=== PATIENT | female | born 1950 | race American Indian/Alaskan Native ===

== ENCOUNTER → 2017-10-17 | Outpatient (CLI) | payer MEDICARE, OTHER ==
[~2017-10-17] MED LIST: ALBU90OI6 INH; ALBU90OI61; ALBU90OI61 INH; AMOX500; ASPI81CH; ASPI81CH PO; ASPI81EC PO; Accuneb1.25 MG/3 INH; Amaryl1 MG; BENZ100A; BISA5EC; BUME1 PO; CALCA500CH; CEPH500 PO; CHOL10002 PO; CICL.77TC; CYAN100; DIPH25 PO; DULERA 200 MCG/13 GM INH; Duoneb 2.5-0.5 M3 ML INH; ERGO400; ERGO50000; FAMO20 PO; FLUSAL2505; FLUSAL2505 IH; FLUT44OIA; FLUT44OIA IH; FOLBIC RF TABL1 EACH; FURO40; FURO40 PO; Flonase 0.05% N16 GM; GLIM2 PO; HYDCHL25; HYDCHL50 PO; HYDMOR2; HYDMOR2 PO; Humalog100 UNIT/3 SC; JARDIANCE25 MG PO; K-TAB ER20 MEQ PO; LIRA0.6P; LISI5 PO; LORA2; LORA2 PO; METO100ER; METO100ER PO; METO2.5; METO5 PO; METR500; MIRT15 PO; MIRT30; MIRT30 PO; MOMENI; MONT10T PO; Methimazole5 MG PO; Metoprolol Tar100 MG PO; NYST100P; NYST100P TOP; Nyamyc15 GM TOP; Nystatin15 GM TOP; OXYACE5T PO; PANT40 PO; POTCHL20ER PO; PRED20 PO; PROM25 PO; PSYL5.85P; PSYL5.85P PO; RABE20; RABE20 PO; SERT50; SITA100T2 PO; TIOT18 INH; TRESIBA FL100 UNIT/1 SC; TRULICITY1.5 MG/0.5 SC; VENL75ER; VENL75ER PO; Zithromax250 MG PO
[2017-10-17 14:07] LABS: Source, Urine Clean Catch
[2017-10-17 14:35] LABS: Appearance, Urine Clear (Clear); Bilirubin, Urine Neg (Neg); Blood, Urine Neg (Neg); Color, Urine Yellow (P-Yellow); Glucose Qualitative, Urine 3+ (Normal); Ketones, Urine Neg (Neg); Leukocyte Esterase, Urine Neg (Neg); Nitrite, Urine Neg (Neg); Protein, Urine Neg (Neg); Urobilinogen, Urine NORM (Normal)
== END ==
LOC: LAB EV 13:48
PROVIDERS: Family Medicine
DX: R82.90 Unspecified abnormal findings in urine (principal)
CPT/HCPCS: 81003

== ENCOUNTER 2019-01-13 07:48 | Day surgery (SDC) | payer MEDICARE, OTHER ==
[~2019-01-13 07:48] MED LIST changes: +ALBU2.5V5 NEB; +DICL75ER PO; +Dulcolax5 MG PO; +Humalog100 UNIT/1 SC; +LO-DOSE ASPIRIN81 MG PO; +METO100 PO; +Nystop60 GM; +Perforomis20 MCG/2 M INH; +TUMS500 MG PO; +VENL150ER PO; +VITAMIN D32000 UNIT PO
== END 2019-01-13 09:40 | disposition home or self-care (01) ==
LOC: ORSCSDS 07:48
PROVIDERS: Internal Medicine Gastroenterology
PROC: 0DJ08ZZ Inspection of Upper Intestinal Tract, Via Natural or Artificial Opening Endoscopic (ICD-10-PCS; principal; 2019-01-13 09:00)
DX: K76.0 Fatty (change of) liver, not elsewhere classified (principal); K74.60 Unspecified cirrhosis of liver; E11.9 Type 2 diabetes mellitus without complications; I10 Essential (primary) hypertension; G47.30 Sleep apnea, unspecified; K75.81 Nonalcoholic steatohepatitis (NASH); E66.01 Morbid (severe) obesity due to excess calories; Z68.42 Body mass index [BMI] 45.0-49.9, adult; Z87.891 Personal history of nicotine dependence; Z79.82 Long term (current) use of aspirin; Z79.84 Long term (current) use of oral hypoglycemic drugs; Z79.4 Long term (current) use of insulin; Z79.899 Other long term (current) drug therapy
CPT/HCPCS: 82947; J0330; J0461; J1980; J2405; J7120

== ENCOUNTER 2019-04-13 13:27 | Emergency (ER) | payer MEDICARE, OTHER ==
[~2019-04-13] VITALS: Ht 157.5 cm; Wt 115.2 kg
[2019-04-13 14:13] LABS: BASOPHILS ABSOLUTE AUTO 0.06 K/mm3 (0.00-0.23); BASOPHILS PERCENT AUTO 1 % (0-2); EOSINOPHILS ABSOLUTE AUTO 0.09 K/mm3 (0.00-0.68); EOSINOPHILS PERCENT AUTO 1 % (0-6); Hematocrit 42.5 % (33.0-51.0); Hemoglobin 13.1 g/dL (11.5-16.0); IMMATURE GRAN ABSOLUTE AUTO 0.03 K/mm3 (0.00-0.10); IMMATURE GRAN PERCENT AUTO 0 % (0-1); LYMPHOCYTES ABSOLUTE AUTO 1.23 K/mm3 (0.84-5.20); LYMPHOCYTES PERCENT AUTO 16 % (21-46); MONOCYTES ABSOLUTE AUTO 0.74 K/mm3 (0.16-1.47); MONOCYTES PERCENT AUTO 10 % (4-13); Mean Corpuscular HGB 28.5 pg (26.0-34.0); Mean Corpuscular HGB Conc 30.8 g/dL (31.5-36.5); Mean Corpuscular Volume 92 fL (80-100); Mean Platelet Volume 11.3 fL (9.1-12.4); NEUTROPHILS PERCENT AUTO 72 % (41-73); Platelet Count 103 K/mm3 (150-400); RDW Standard Deviation 51.4 fL (35.1-46.3); White Blood Cell Count 7.65 K/mm3 (4.00-11.30)
[2019-04-13 14:48] LABS: Source, Urine Clean Catch
[2019-04-13 14:51] LABS: Bilirubin, Urine Neg (Neg); Blood, Urine 2+ (Neg); Glucose Qualitative, Urine Neg (Neg); Ketones, Urine 1+ (Neg); Leukocyte Esterase, Urine 3+ (Neg); Nitrite, Urine Neg (Neg); Protein, Urine 4+ (Neg); Specific Gravity, Urine 1.025 (1.003-1.022); Urobilinogen, Urine 1+ (Normal)
[2019-04-13 14:54] LABS: Alanine Aminotransfer (ALT/SGP 29 U/L (12-78); Albumin, Blood 2.7 g/dL (3.4-5.0); Albumin/Globulin Ratio 0.6 (0.8-1.8); Alk Phos 103 U/L (50-136); Anion Gap 5 mmol/L (6-16); Aspartate Aminotrans (AST/SGOT 41 U/L (12-37); Bilirubin, Total 0.4 mg/dL (0.1-1.0); Blood Urea Nitrogen 7 mg/dL (8-24); Bun/Creatinine Ratio 12.9 (12.0-20.0); CO2, Blood 35 mmol/L (21-32); Calcium, Blood 8.8 mg/dL (8.5-10.1); Chloride, Blood 100 mmol/L (98-108); Creatinine, Blood 0.54 mg/dL (0.40-1.00); Globulin, Blood 4.6 g/dL (2.2-4.0); Glomerular Filtration Rate >60 (60-); Glucose, Blood 170 mg/dL (70-99); Potassium, Blood 3.4 mmol/L (3.5-5.5); Sodium, Blood 140 mmol/L (136-145); Total Protein, Blood 7.3 g/dL (6.4-8.2)
[2019-04-13 15:05] LABS: Appearance, Urine Cloudy (Clear); Color, Urine Yellow (P-Yellow)
[2019-04-13 15:07] LABS: White Blood Cells, Urine 50-100 /hpf (0-5)
[2019-04-13 15:09] LABS: Bacteria Many /hpf; Squamous Epithelial Cells Many /hpf (Few)
[2019-04-13] MEDS ORDERED: CEPH500 PO (15:23)
== END 2019-04-13 16:30 | disposition home or self-care (01) ==
LOC: ER 13:27
PROVIDERS: Emergency Medicine
DX: N12 Tubulo-interstitial nephritis, not specified as acute or chronic (principal); E87.5 Hyperkalemia; Z88.8 Allergy status to other drugs, medicaments and biological substances; Z88.2 Allergy status to sulfonamides; Z88.7 Allergy status to serum and vaccine; Z88.5 Allergy status to narcotic agent; Z79.899 Other long term (current) drug therapy; Z79.82 Long term (current) use of aspirin; Z79.4 Long term (current) use of insulin; F32.9 Major depressive disorder, single episode, unspecified; F41.9 Anxiety disorder, unspecified; E11.9 Type 2 diabetes mellitus without complications; E78.5 Hyperlipidemia, unspecified; Z87.891 Personal history of nicotine dependence
CPT/HCPCS: 51701; 80053; 81001; 85025; 87077; 87086; 87186; 93005; 93010; 96365; 99284-25; J0696

== ENCOUNTER 2020-03-31 07:32 | Day surgery (SDC) | payer MEDICARE, OTHER | END 2020-03-31 22:35 | disposition home or self-care (01) | LOC: MOI US 07:32 → MOI MAM 08:00 → MOI US 08:00 | DX: C50.912 Malignant neoplasm of unspecified site of left female breast (principal); C50.911 Malignant neoplasm of unspecified site of right female breast; R92.8 Other abnormal and inconclusive findings on diagnostic imaging of breast; Z17.0 Estrogen receptor positive status [ER+] | CPT/HCPCS: 19083; 19084; 77066; 88305; 88342; 88360; A4648; G0279 ==

== ENCOUNTER 2020-09-06 14:04 | Day surgery (SDC) | payer MEDICARE, OTHER ==
[2020-09-05 08:07] LABS: BASOPHILS ABSOLUTE AUTO 0.07 K/mm3 (0.00-0.23); BASOPHILS PERCENT AUTO 1 % (0-2); EOSINOPHILS PERCENT AUTO 2 % (0-6); Hematocrit 25.9 % (33.0-51.0); Hemoglobin 7.3 g/dL (11.5-16.0); IMMATURE GRAN ABSOLUTE AUTO 0.03 K/mm3 (0.00-0.10); IMMATURE GRAN PERCENT AUTO 1 % (0-1); LYMPHOCYTES ABSOLUTE AUTO 1.57 K/mm3 (0.84-5.20); LYMPHOCYTES PERCENT AUTO 28 % (21-46); MONOCYTES ABSOLUTE AUTO 0.69 K/mm3 (0.16-1.47); MONOCYTES PERCENT AUTO 12 % (4-13); Mean Corpuscular HGB 24.3 pg (26.0-34.0); Mean Corpuscular HGB Conc 28.2 g/dL (31.5-36.5); Mean Corpuscular Volume 86 fL (80-100); Mean Platelet Volume 9.9 fL (9.1-12.4); NEUTROPHILS ABSOLUTE AUTO 3.23 K/mm3 (1.96-9.15); NEUTROPHILS PERCENT AUTO 57 % (41-73); Platelet Count 421 K/mm3 (150-400); RDW Coefficient Variation 17.4 % (11.7-14.2); RDW Standard Deviation 54.4 fL (35.1-46.3); White Blood Cell Count 5.69 K/mm3 (4.00-11.30)
[2020-09-05 08:20] LABS: Alanine Aminotransfer (ALT/SGP 15 U/L (12-78); Albumin/Globulin Ratio 0.5 (0.8-1.8); Alk Phos 116 U/L (50-136); Anion Gap 1 mmol/L (6-16); Aspartate Aminotrans (AST/SGOT 34 U/L (12-37); Bilirubin, Total 0.6 mg/dL (0.1-1.0); Blood Urea Nitrogen 7 mg/dL (8-24); Bun/Creatinine Ratio 12.1 (12.0-20.0); CO2, Blood 29 mmol/L (21-32); Calcium, Blood 8.6 mg/dL (8.5-10.1); Chloride, Blood 108 mmol/L (98-108); Creatinine, Blood 0.58 mg/dL (0.40-1.00); Globulin, Blood 4.3 g/dL (2.2-4.0); Glomerular Filtration Rate >60 (60-); Glucose, Blood 110 mg/dL (70-99); Potassium, Blood 4.1 mmol/L (3.5-5.5); Sodium, Blood 138 mmol/L (136-145); Total Protein, Blood 6.3 g/dL (6.4-8.2)
[2020-09-06 08:55] LABS: Percent Saturation 7.8 % (15.0-50.0)
[~2020-09-06 14:04] MED LIST changes: -Humalog100 UNIT/1 SC; -LO-DOSE ASPIRIN81 MG PO
--- NOTE | 2020-09-06 15:00 | NUR ---
PT WITH INSPIRATORY WHEEZE TO RIGHT MID LOBE, OTHER LOBES DIMINISHED BUT CLEAR. O2 AT 3 L/MIN CONTINUOUSLY. PT STATES HX OF COPD.
[2020-09-06] MEDS ORDERED: OXYGEN INH (15:50)
[2020-09-06] MEDS ORDERED: DEXA4 PO (15:57)
[2020-09-06] MEDS ORDERED: LEVFLO500 PO (15:58)
[2020-09-06] MEDS ORDERED: DIFLUCAN100 MG PO (15:58)
[2020-09-06] MEDS ORDERED: NITR100CA PO (15:59)
[2020-09-06] MEDS ORDERED: METO10 PO (22:20)
[2020-09-06] MEDS ORDERED: FERSU300 PO (22:21)
[2020-09-06] MEDS ORDERED: Ondansetron Odt8 MG SL (22:23)
[2020-09-06] MEDS ORDERED: TRULICITY1.5 MG/0.1 SC (22:23)
[2020-09-06] MEDS ORDERED: HUMALOG KW100 UNIT/1 SC (22:25)
[2020-09-06] MEDS ORDERED: POTCHL20ER PO (22:25)
[2020-09-06] MEDS ORDERED: TRESIBA FL100 UNIT/2 SC (22:26)
[2020-09-06] MEDS ORDERED: ASPIR 8181 M1 PO (22:27)
[2020-09-06] MEDS ORDERED: ANORO ELLIPTA1 EACH INH (22:28)
[2020-09-06] MEDS ORDERED: BISA5EC PO (22:29)
[2020-09-06] MEDS ORDERED: OLAN10 PO (22:39)
[2020-09-06] MEDS ORDERED: HYDMOR2 PO (22:50)
[2020-09-06] MEDS ORDERED: ALBU90OI61 INH (22:50)
== END 2020-09-06 16:56 | disposition home or self-care (01) ==
LOC: ATC 14:04
PROVIDERS: Internal Medicine Hematology & Oncology
DX: C50.812 Malignant neoplasm of overlapping sites of left female breast (principal); C77.9 Secondary and unspecified malignant neoplasm of lymph node, unspecified; E11.9 Type 2 diabetes mellitus without complications; I10 Essential (primary) hypertension; J44.9 Chronic obstructive pulmonary disease, unspecified; G47.00 Insomnia, unspecified; M19.90 Unspecified osteoarthritis, unspecified site; D64.9 Anemia, unspecified; Z87.891 Personal history of nicotine dependence; Z79.51 Long term (current) use of inhaled steroids; Z79.82 Long term (current) use of aspirin; Z79.4 Long term (current) use of insulin; Z79.899 Other long term (current) drug therapy; Z88.1 Allergy status to other antibiotic agents; Z88.2 Allergy status to sulfonamides; Z88.5 Allergy status to narcotic agent; Z88.6 Allergy status to analgesic agent; Z88.7 Allergy status to serum and vaccine; Z88.8 Allergy status to other drugs, medicaments and biological substances; Z99.81 Dependence on supplemental oxygen
CPT/HCPCS: 36415; 36430; 80053; 82728; 83540; 83550; 85025; 86850; 86900; 86901; 86923; J2704; J7050; P9016

== ENCOUNTER 2020-09-06 19:48 | Inpatient (IN) | payer MEDICARE, OTHER ==
[~2020-09-06] VITALS: Ht 157.5 cm; Wt 104.5 kg
[~2020-09-06 19:48] MED LIST changes: +DEXA4 PO; +DIFLUCAN100 MG PO; +LEVFLO500 PO; +NITR100CA PO; +OXYGEN INH
[2020-09-06 20:23] LABS: BASOPHILS ABSOLUTE AUTO 0.09 K/mm3 (0.00-0.23); BASOPHILS PERCENT AUTO 1 % (0-2); EOSINOPHILS ABSOLUTE AUTO 0.07 K/mm3 (0.00-0.68); EOSINOPHILS PERCENT AUTO 1 % (0-6); Hematocrit 25.6 % (33.0-51.0); Hemoglobin 7.4 g/dL (11.5-16.0); IMMATURE GRAN ABSOLUTE AUTO 0.06 K/mm3 (0.00-0.10); IMMATURE GRAN PERCENT AUTO 1 % (0-1); LYMPHOCYTES ABSOLUTE AUTO 2.64 K/mm3 (0.84-5.20); LYMPHOCYTES PERCENT AUTO 27 % (21-46); MONOCYTES ABSOLUTE AUTO 1.24 K/mm3 (0.16-1.47); MONOCYTES PERCENT AUTO 13 % (4-13); Mean Corpuscular HGB 24.7 pg (26.0-34.0); Mean Corpuscular HGB Conc 28.9 g/dL (31.5-36.5); Mean Corpuscular Volume 86 fL (80-100); Mean Platelet Volume 9.6 fL (9.1-12.4); NEUTROPHILS ABSOLUTE AUTO 5.54 K/mm3 (1.96-9.15); NEUTROPHILS PERCENT AUTO 58 % (41-73); NRBC ABSOLUTE 0.04 K/mm3 (0.00-0.02); NRBC Auto 0.4 /100 WBC (0.0-0.2); Platelet Count 465 K/mm3 (150-400); RDW Coefficient Variation 17.1 % (11.7-14.2); Red Blood Cell Count 2.99 M/mm3 (3.80-5.20); White Blood Cell Count 9.64 K/mm3 (4.00-11.30)
[2020-09-06 20:41] LABS: Alanine Aminotransfer (ALT/SGP 14 U/L (12-78); Albumin, Blood 1.8 g/dL (3.4-5.0); Albumin/Globulin Ratio 0.5 (0.8-1.8); Alk Phos 104 U/L (50-136); Anion Gap 11 mmol/L (6-16); Aspartate Aminotrans (AST/SGOT 31 U/L (12-37); Bilirubin, Total 0.7 mg/dL (0.1-1.0); Blood Urea Nitrogen 8 mg/dL (8-24); Bun/Creatinine Ratio 12.7 (12.0-20.0); CO2, Blood 24 mmol/L (21-32); Calcium, Blood 8.1 mg/dL (8.5-10.1); Chloride, Blood 107 mmol/L (98-108); Creatinine, Blood 0.63 mg/dL (0.40-1.00); Free Thyroxine 1.55 ng/dL (0.70-1.60); Globulin, Blood 3.8 g/dL (2.2-4.0); Glomerular Filtration Rate >60 (60-); Glucose, Blood 151 mg/dL (70-99); Magnesium, Blood 1.8 mg/dL (1.6-2.4); Potassium, Blood 4.3 mmol/L (3.5-5.5); Sodium, Blood 142 mmol/L (136-145); Total Protein, Blood 5.6 g/dL (6.4-8.2); Troponin I <0.015 ng/mL (0.000-0.040)
[2020-09-06 20:44] LABS: Thyroid Stimulating Hormone <0.005 uIU/mL (0.360-4.800)
[2020-09-06] MEDS ORDERED: METO10 PO (22:20)
[2020-09-06] MEDS ORDERED: FERSU300 PO (22:21)
[2020-09-06] MEDS ORDERED: TRULICITY1.5 MG/0.1 SC (22:23)
[2020-09-06] MEDS ORDERED: Ondansetron Odt8 MG SL (22:23)
[2020-09-06] MEDS ORDERED: HUMALOG KW100 UNIT/1 SC (22:25)
[2020-09-06] MEDS ORDERED: POTCHL20ER PO (22:25)
[2020-09-06] MEDS ORDERED: TRESIBA FL100 UNIT/2 SC (22:26)
[2020-09-06] MEDS ORDERED: ASPIR 8181 M1 PO (22:27)
[2020-09-06] MEDS ORDERED: ANORO ELLIPTA1 EACH INH (22:28)
[2020-09-06] MEDS ORDERED: BISA5EC PO (22:29)
[2020-09-06] MEDS ORDERED: OLAN10 PO (22:39)
[2020-09-06] MEDS ORDERED: HYDMOR2 PO (22:50)
[2020-09-06] MEDS ORDERED: ALBU90OI61 INH (22:50)
[2020-09-07 01:25] LABS: Source, Urine Clean Catch
--- NOTE | 2020-09-07 01:30 | NUR ---
PT ARRIVED FROM ER VIA STRETCHER; SLIDER SHEET USED TO TRANSFER PT TO BED; PT A&O X 4; DENIES CHEST PAIN; VSS; O2 SATS >92 ON 2L NC, PT STATES BASELINE; SINUS TACH NOTED ON TELE; 1 UNIT PRBC STARTED W/ NS FLUSH; PROTONIX GTT STARTED; ASSISTED PT TO CALL SPOUSE FOR UPDATE; ORIENTED TO UNIT SAFETY / PROTOCOL; CALL LIGHT IN REACH; BED IN LOWEST POSITION.
[2020-09-07 01:31] LABS: Bilirubin, Urine Neg (Neg); Blood, Urine 4+ (Neg); Glucose Qualitative, Urine Neg (Neg); Ketones, Urine 1+ (Neg); Leukocyte Esterase, Urine 3+ (Neg); Nitrite, Urine Pos (Neg); Protein, Urine 3+ (Neg); Urobilinogen, Urine 1+ (Normal)
[2020-09-07 01:32] LABS: Appearance, Urine Hazy (Clear); Color, Urine Yellow (P-Yellow)
[2020-09-07 01:37] LABS: Bacteria Many /hpf; Red Blood Cells, Urine 0-2 /hpf (0-2); Squamous Epithelial Cells Rare /hpf (Few); White Blood Cells, Urine TNTC /hpf (0-5)
--- NOTE | 2020-09-07 02:54 | NUR ---
UPDATE PT C/O BACK PAIN; HEAT PAD BROUGHT TO PT; DILAUDID PO GIVEN PER EMAR; RT TO BEDSIDE TO SET UP CPAP FOR NOC; CALL LIGHT IN REACH; BED IN LOWEST POSITION.
[2020-09-07 06:17] LABS: BASOPHILS ABSOLUTE AUTO 0.05 K/mm3 (0.00-0.23); BASOPHILS PERCENT AUTO 1 % (0-2); EOSINOPHILS ABSOLUTE AUTO 0.04 K/mm3 (0.00-0.68); EOSINOPHILS PERCENT AUTO 1 % (0-6); Hematocrit 23.5 % (33.0-51.0); Hemoglobin 7.2 g/dL (11.5-16.0); IMMATURE GRAN ABSOLUTE AUTO 0.05 K/mm3 (0.00-0.10); IMMATURE GRAN PERCENT AUTO 1 % (0-1); LYMPHOCYTES ABSOLUTE AUTO 2.22 K/mm3 (0.84-5.20); LYMPHOCYTES PERCENT AUTO 28 % (21-46); MONOCYTES ABSOLUTE AUTO 1.11 K/mm3 (0.16-1.47); MONOCYTES PERCENT AUTO 14 % (4-13); Mean Corpuscular HGB Conc 30.6 g/dL (31.5-36.5); Mean Corpuscular Volume 85 fL (80-100); Mean Platelet Volume 9.5 fL (9.1-12.4); NEUTROPHILS ABSOLUTE AUTO 4.35 K/mm3 (1.96-9.15); NEUTROPHILS PERCENT AUTO 56 % (41-73); Platelet Count 331 K/mm3 (150-400); RDW Coefficient Variation 16.3 % (11.7-14.2); RDW Standard Deviation 50.3 fL (35.1-46.3); Red Blood Cell Count 2.77 M/mm3 (3.80-5.20); White Blood Cell Count 7.82 K/mm3 (4.00-11.30)
[2020-09-07 06:37] LABS: Albumin, Blood 1.6 g/dL (3.4-5.0); Anion Gap 4 mmol/L (6-16); Blood Urea Nitrogen 16 mg/dL (8-24); Bun/Creatinine Ratio 28.5 (12.0-20.0); CO2, Blood 31 mmol/L (21-32); Calcium, Blood 7.4 mg/dL (8.5-10.1); Chloride, Blood 106 mmol/L (98-108); Creatinine, Blood 0.56 mg/dL (0.40-1.00); Glomerular Filtration Rate >60 (60-); Glucose, Blood 135 mg/dL (70-99); Phosphorus, Blood 3.3 mg/dL (2.5-4.9); Potassium, Blood 4.2 mmol/L (3.5-5.5); Sodium, Blood 141 mmol/L (136-145)
--- NOTE | 2020-09-07 06:40 | NUR ---
SHIFT SUMMARY PT A&O X 4; DENIES CHEST PAIN; VSS; SINUS TACH NOTED ON TELE W/ HR 110; O2 SATS > 93 ON 2.5 L NC; 1 U PRBC COMPLETED THIS SHIFT; PROTONIX GTT INFUSING; ROCEPHIN X 1 W/ NO ADVERSE REACTION; LOOSE BLOODY / MAROON STOOL X 3 THIS SHIFT; PT EXPRESSES CONCERN FOR SPOUSE COMING TO TERMS W/ THE SEVERITY OF HER CONDITION; CALL LIGHT IN REACH; BED IN LOWEST POSITION; WILL CONTINUE TO MONITOR CLOSELY UNTIL HAND OFF TO DAY SHIFT RN.
--- NOTE | 2020-09-07 08:19 | NUR ---
Dr. Beaver here to see the patient. Code status changed after pt initiated conversation about her purple arm band. Also placed new order for palliative care consultation. Dr. Beaver said she will call Dr. Salazar this morning.
--- NOTE | 2020-09-07 09:23 | NUR ---
Spoke with Dr. Salazar on the phone. Last drink of water was 0910. NPO from now. Also spoke with Celestina in day surgery, confirmed pt is NPO. He will call when they are able to take the pt.
--- NOTE | 2020-09-07 09:24 | NUR ---
Covid test completed and sent to lab.
--- NOTE | 2020-09-07 10:09 | NUR ---
ASSUMED CARE FROM NOC RN, MORNING UPDATE. PT WAS AWAKE AND DOING A BREATHING TREATMENT WITH RT DURING REPORT. 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 PT HAS BEEN SCHEDULED FOR A UPPER SCOPE WITH DR. KAPLAN THIS MORNING, PT HAS BEEN NPO OTHER THAN SIPS OF WATER WITH MEDICATIONS THIS MORNING. PT DOES HAVE CHRONIC PAIN WHICH HAS BEEN TREATED WITH ORAL MEDICATION THIS MORNING. VS STABLE, HR 110s OTHERWISE SR. NO INSULIN COVERAGE NEEDED THIS AM. ONCOLOGY WAS CONSULTED SO THAT DR. ELLIOTT' OFFICE COULD BE IN TOUCH WITH GI AND PCP AND REMAIN INVOLVED IN THE CASE. RN DEENAO SPOKE WITH PT'S DAUGHTER THIS MORNING, CHARY WHO WAS GIVEN AN UPDATE REGARDING THE PLAN FOR TODAY. PALLIATIVE CARE HAS BEEN CONSULTED AND WILL VISIT WITH THE PT AND HER SPOUSE THIS AFTERNOON DURING VISITING HOURS. PT IS RESTING AT THIS TIME
[2020-09-07 10:20] LABS: Influenza A, PCR Negative (NEGATIVE); Influenza B, PCR Negative (NEGATIVE); Resp Syncytial Virus, PCR Negative (NEGATIVE); SARS-Cov-2 (COVID-19) PCR, MMC Negative (NEGATIVE)
--- NOTE | 2020-09-07 12:40 | NUR ---
FROM PCU TO [facility] ADMISSION TO UNIT STARTED. History, Chart, Medications and Allergies reviewed before start of procedure. Patient confirms NPO status and agrees with scheduled surgery.
--- NOTE | 2020-09-07 13:32 | NUR ---
09/07/20 1332 Scotty Campos History, Chart, Medications and Allergies reviewed before start of procedure.MONITOR INTACT WITH CONTINUOUS PULSE OXIMETRY AND INTERMITTENT BP.3-LEAD EKG REVIEWED WITH PHYSICIAN PRIOR TO START OF PROCEDURE.O2 VIA N/C INTACT THROUGHOUT SEDATION/PROCEDURE. See Anesthesia record.
[2020-09-07 15:05] LABS: Hematocrit 23.9 % (33.0-51.0); Hemoglobin 7.1 g/dL (11.5-16.0)
--- NOTE | 2020-09-07 15:27 | NUR ---
Spoke with Bedside RN Augusta and discussed case. Pt is wanting to discuss further when spouse arrives regarding wishes for life sustaining treatment. Pt resting in bed upon arrival. Spouse Ariel at bedside. Pt reports tolerable 6/10 pain in her lower back. Engaged in therapeutic discussion regarding AD/POLST. Educated on life sustaining treatments including risk factors and implications. Eduated on each section to complete on POLST. Discussed advanced directives and the importance of appointing a healthcare software sales representative. Educated on each section to complete. Left extra copy of each per spouse request. Answered questions and offered therapeutic listening. Pt and spouse express appreciation of visit and report no other concerns at this time. Palliative Care will remain available.
--- NOTE | 2020-09-07 18:31 | NUR ---
SHIFT SUMMARY PT HAS HAD BOTH INCONTINENT AND CONTINENT STOOLS TODAY THAT HAVE BEEN MAROON/BLACK AND LIQUID. PT WAS SEEN BY DR. KAPLAN FOR AN UPPER GI SCOPE AND TWO LARGE ULCERS WERE FOUND. DR. KAPLAN WAS NOT ABLE TO TREAT THE ULCERS AND RECOMMENDED MEDICATION MANAGEMENT. PT'S H&H WAS RECHECKED FOLLOWING THE PROCEDURE AND HgB WAS 7.1, PT HAS 1 UNIT OF PBRC STARTED AND CURRENTLY RUNNING AT 100ML/HR WITH NS TO FLUSH. PT ALSO HAS A PROTONIX GTT RUNNING AT 10ML/HR. PT'S FAMILY HAS BEEN UPDATED CONCERNING THE RESULTS OF THE PROCEDURE. PT AND HER SPOUSE VISITED WITH PALLIATIVE CARE TODAY AND DISCUSSED END OF LIFE OPTIONS WELL Norm LUTHER RN PROVIDED THERAPEUTIC LISTENING. VS STABLE, PT CURRENTLY WEARING BIPAP AND SLEEPING
[2020-09-08 02:06] LABS: BASOPHILS ABSOLUTE AUTO 0.06 K/mm3 (0.00-0.23); BASOPHILS PERCENT AUTO 1 % (0-2); EOSINOPHILS ABSOLUTE AUTO 0.16 K/mm3 (0.00-0.68); EOSINOPHILS PERCENT AUTO 3 % (0-6); Hemoglobin 8.3 g/dL (11.5-16.0); IMMATURE GRAN ABSOLUTE AUTO 0.03 K/mm3 (0.00-0.10); IMMATURE GRAN PERCENT AUTO 1 % (0-1); LYMPHOCYTES ABSOLUTE AUTO 1.49 K/mm3 (0.84-5.20); LYMPHOCYTES PERCENT AUTO 25 % (21-46); MONOCYTES ABSOLUTE AUTO 0.79 K/mm3 (0.16-1.47); MONOCYTES PERCENT AUTO 13 % (4-13); Mean Corpuscular HGB 26.1 pg (26.0-34.0); Mean Corpuscular HGB Conc 30.7 g/dL (31.5-36.5); Mean Corpuscular Volume 85 fL (80-100); Mean Platelet Volume 9.3 fL (9.1-12.4); NEUTROPHILS ABSOLUTE AUTO 3.42 K/mm3 (1.96-9.15); NEUTROPHILS PERCENT AUTO 58 % (41-73); Platelet Count 330 K/mm3 (150-400); RDW Coefficient Variation 16.9 % (11.7-14.2); RDW Standard Deviation 51.6 fL (35.1-46.3); Red Blood Cell Count 3.18 M/mm3 (3.80-5.20); White Blood Cell Count 5.95 K/mm3 (4.00-11.30)
[2020-09-08 02:24] LABS: Anion Gap 3 mmol/L (6-16); Blood Urea Nitrogen 13 mg/dL (8-24); Bun/Creatinine Ratio 19.3 (12.0-20.0); CO2, Blood 32 mmol/L (21-32); Calcium, Blood 8.1 mg/dL (8.5-10.1); Chloride, Blood 110 mmol/L (98-108); Creatinine, Blood 0.67 mg/dL (0.40-1.00); Glomerular Filtration Rate >60 (60-); Glucose, Blood 102 mg/dL (70-99); Potassium, Blood 3.5 mmol/L (3.5-5.5); Sodium, Blood 145 mmol/L (136-145)
--- NOTE | 2020-09-08 05:18 | NUR ---
SHIFT SUMMARY PT A&O X 4; 1 U PRBC COMPLETED EARLY IN SHIFT; VSS; O2 SATS >93 ON 2.5 L NC; PT C/O CHRONIC BACK PAIN; HEAT PAD OFFERED, WELL REPOSITIONING W/ PILLOW BETWEEN LEGS; DILAUDID ADMINISTERED PER EMAR; PT AWOKE FRIGHTENED AND PANIC FEELING APPROXIMATELY @ 2300; AID AND THIS RN REMAINED IN ROOM, ASSISTING PT TO RECLINER, THEN BACK TO BED; PT RESTLESS AND STATED SHE WAS ANXIOUS; HENOK PIERCE NOTIFIED AND 1X ORDER OF 0.25 MG ATIVAN IV GIVEN; PT APPEARED BETTER AFTER A FEW HOURS SLEEP; AM LAB DRAW HGB 8.5; REPOSITIONED FREQUENTLY FOR COMFORT; CALL LIGHT IN REACH; BED IN LOWEST POSITION; WILL CONTINUE TO MONITOR CLOSELY UNTIL HAND OFF TO DAY SHIFT RN.
--- NOTE | 2020-09-08 06:55 | NUR ---
UPDATE PT C/O PAIN IN R HAND; IV NOTED TO HAVE INFILTRATED; PROTONIX GTT SWITCHED TO L HAND IV; R HAND IV DC'D; DILAUDID ADMINISTERED FOR BACK PAIN ; CALL LIGHT IN REACH
--- NOTE | 2020-09-08 08:00 | NUR ---
pt laying in bed, awake, a/ox3, pleasant and cooperative with care, follows commands well, denies pain this am, state she's comfortable, lungs are clear and dim in bases, resp even and unlabored, no cough noted, hrr, tele in place running sr to st per monitor, see strip, trace edema noted to b/l le, ppp+1, cap refill <3sec, vs stable, afebrile, iv site is clear and patent, infusing protonix gtt as ordered, btx4, abd flat soft nontender, voids via bsc, attends in place for incont, did use a bed zamudio this am for voiding, skin has sore to coccyx, dressing in place c/d/i, maureen sepulveda call light in reach.
--- NOTE | 2020-09-08 13:08 | NUR ---
pt called nurse in states she's shaking and having a lot of anxiety, missing her spouce, etc. after talking to her she said she's having pain on her bottom, asked her to turn, she didn't want to, did medicate her, she is much more calm now. budget analyst got her up to recliner chair, she states she is much more comfortable, pain down to 4. call light in reach.
--- NOTE | 2020-09-09 04:51 | NUR ---
SHIFT SUMMARY PT HAD A QUIET, UNEVENTFUL NIGHT. STATED HAVING PAIN IN BACK/LOWER BACK AND COCCYX. PRN PAIN MEDICATION WAS GIVEN ONCE AND PT STATED RELIEF AND WAS ABLE TO SLEEP. PT WAS REPOSITIONED FREQUENTLY WITH SOME RELIEF OF PAIN. HR WAS TACHY T/O SHIFT AT 110-120 BPM. BP VARIED 93-114 SYSTOLIC, O2 SATS >90% WITH PT ON 2.5LPM VIA NC. PT HAD ONE SMALL BM THIS SHIFT, SOFT AND BROWN APPEARANCE. PT AWAKE AND WATCHING TV. WILL CONTINUE TO MONITOR UNTIL SHIFT CHANGE.
--- NOTE | 2020-09-09 09:21 | NUR ---
pt sitting up in a chair, a/ox3, states she's doing ok today, slept ok last night, denies pain, lungs are clear t/o, resp even and unlabored, no cough noted, hrr, tele in place running st per monitor, see strip, trace edema noted to b/l le, ppp+1, cap refill <3sec, vs stable, afebrile, iv site is clear and patent, btx4, abd flat soft nontender, voids without diff, pullups in place as well, skin has red coccyx, otherwise intact, derick, is a one person assist, maureen, call light in reach.
[2020-09-09 13:59] LABS: Hematocrit 23.3 % (33.0-51.0); Hemoglobin 7.3 g/dL (11.5-16.0)
--- NOTE | 2020-09-09 18:32 | NUR ---
pt had an uneventful day, up to the chair several times, spouce was in to visit. call light in reach.
[2020-09-10 04:58] LABS: BASOPHILS ABSOLUTE AUTO 0.04 K/mm3 (0.00-0.23); BASOPHILS PERCENT AUTO 1 % (0-2); EOSINOPHILS ABSOLUTE AUTO 0.16 K/mm3 (0.00-0.68); EOSINOPHILS PERCENT AUTO 3 % (0-6); Hematocrit 23.8 % (33.0-51.0); IMMATURE GRAN ABSOLUTE AUTO 0.02 K/mm3 (0.00-0.10); IMMATURE GRAN PERCENT AUTO 0 % (0-1); LYMPHOCYTES PERCENT AUTO 25 % (21-46); MONOCYTES ABSOLUTE AUTO 0.72 K/mm3 (0.16-1.47); MONOCYTES PERCENT AUTO 14 % (4-13); Mean Corpuscular HGB 25.5 pg (26.0-34.0); Mean Corpuscular HGB Conc 29.4 g/dL (31.5-36.5); Mean Corpuscular Volume 87 fL (80-100); Mean Platelet Volume 9.6 fL (9.1-12.4); NEUTROPHILS ABSOLUTE AUTO 3.01 K/mm3 (1.96-9.15); NEUTROPHILS PERCENT AUTO 57 % (41-73); Platelet Count 218 K/mm3 (150-400); RDW Standard Deviation 58.7 fL (35.1-46.3); Red Blood Cell Count 2.74 M/mm3 (3.80-5.20); White Blood Cell Count 5.25 K/mm3 (4.00-11.30)
--- NOTE | 2020-09-10 05:37 | NUR ---
SHIFT SUMMARY PT HAS LITTLE CHANGE FROM PREVIOUS SHIFT. BOWEL MOVEMENTS THIS SHIFT HAVE BEEN CHOCOLATE BROWN IN COLOR AND SOFT CONSISTANCY. PT HAD SOME ANXIETY AT THE START OF SHIFT STATING SHE WOULD WAKE UP PANICKED AND YELLING OUT FOR HER . SHE DID NOT WANT ANY MEDICATION, ONLY HER PRN PAIN MEDICATION ONCE. PT HAS BEEN OTHERWISE UNCHANGED. SHE IS EAGER TO GET HOME.
[2020-09-10 05:45] LABS: Anion Gap 5 mmol/L (6-16); Blood Urea Nitrogen 7 mg/dL (8-24); Bun/Creatinine Ratio 12.5 (12.0-20.0); CO2, Blood 28 mmol/L (21-32); Calcium, Blood 7.8 mg/dL (8.5-10.1); Chloride, Blood 109 mmol/L (98-108); Creatinine, Blood 0.56 mg/dL (0.40-1.00); Glomerular Filtration Rate >60 (60-); Glucose, Blood 88 mg/dL (70-99); Magnesium, Blood 1.9 mg/dL (1.6-2.4); Sodium, Blood 142 mmol/L (136-145)
--- NOTE | 2020-09-10 18:13 | NUR ---
SHIFT SUMMARY PT IS ALERT AND ORIENTEDx4. 1 UNIT PRBC INFUSED TODAY, PER ORDERS, PT TOLERERATE WELL. ENCOURAGED PT TO SIT UP IN CHAIR TODAY TOLERATED. PT HAVE FREQ LOOSE BM, ORANGE/BROWN IN COLOR. HOME O2 SETTINGS OF 2L ON PT AND SPO2 HAS REMAINED >92%. THIS AFTERNOON PT WAS STATUS CHANGED TO MEDICAL NO TELE. VITALS HAVE BEEN STABLE.
[2020-09-11 05:08] LABS: BASOPHILS ABSOLUTE AUTO 0.05 K/mm3 (0.00-0.23); BASOPHILS PERCENT AUTO 1 % (0-2); EOSINOPHILS ABSOLUTE AUTO 0.22 K/mm3 (0.00-0.68); EOSINOPHILS PERCENT AUTO 4 % (0-6); Hematocrit 29.9 % (33.0-51.0); Hemoglobin 8.8 g/dL (11.5-16.0); IMMATURE GRAN ABSOLUTE AUTO 0.01 K/mm3 (0.00-0.10); IMMATURE GRAN PERCENT AUTO 0 % (0-1); LYMPHOCYTES ABSOLUTE AUTO 1.26 K/mm3 (0.84-5.20); LYMPHOCYTES PERCENT AUTO 22 % (21-46); MONOCYTES ABSOLUTE AUTO 0.83 K/mm3 (0.16-1.47); MONOCYTES PERCENT AUTO 15 % (4-13); Mean Corpuscular HGB 25.8 pg (26.0-34.0); Mean Corpuscular HGB Conc 29.4 g/dL (31.5-36.5); Mean Corpuscular Volume 88 fL (80-100); Mean Platelet Volume 9.8 fL (9.1-12.4); NEUTROPHILS ABSOLUTE AUTO 3.35 K/mm3 (1.96-9.15); NEUTROPHILS PERCENT AUTO 59 % (41-73); Platelet Count 222 K/mm3 (150-400); RDW Coefficient Variation 18.8 % (11.7-14.2); RDW Standard Deviation 59.2 fL (35.1-46.3); Red Blood Cell Count 3.41 M/mm3 (3.80-5.20); White Blood Cell Count 5.72 K/mm3 (4.00-11.30)
[2020-09-11 05:38] LABS: Anion Gap 5 mmol/L (6-16); Blood Urea Nitrogen 8 mg/dL (8-24); Bun/Creatinine Ratio 14.4 (12.0-20.0); CO2, Blood 27 mmol/L (21-32); Calcium, Blood 7.7 mg/dL (8.5-10.1); Chloride, Blood 111 mmol/L (98-108); Creatinine, Blood 0.55 mg/dL (0.40-1.00); Glomerular Filtration Rate >60 (60-); Glucose, Blood 97 mg/dL (70-99); Potassium, Blood 3.4 mmol/L (3.5-5.5); Sodium, Blood 143 mmol/L (136-145)
--- NOTE | 2020-09-11 06:31 | NUR ---
SHIFT SUMMARY PT HAD A QUIET, UNEVENTFUL NIGHT. VITALS WERE STABLE, BP 105-119 SYSTOLIC. HR 70-90'S, NO CHEST PAIN, NO TELE. PT WAS ON 2 LPM NC SOME OF THE NIGHT WITH O2 SATS >96%. WHEN PT ON ROOM AIR O2 SATS ABOUT 95% AND NO SOB. PT HAVING PAIN IN BOTH HANDS, L HAND IS MORE PAINFUL THAN R. HANDS HAVE 3+ PITTING EDEMA TO WRIST. ICE PACKS APPLIED TO HANDS WITH LITTLE REILEF. PT IS VERY ANXIOUS TO GET HOME. PT CURRENTLY UP IN CHAIR.
[2020-09-11] MEDS ORDERED: METO25 PO (10:23)
[2020-09-11] MEDS ORDERED: PANT40 PO (10:24)
--- NOTE | 2020-09-11 13:19 | NUR ---
DISCHARGE INSTRUCTIONS GONE OVER WITH PT. INSTRUCTED PT ON FOLLOW UP VISITS, NEW AND OLD MEDICATIONS. BELONGINGS GATHERED AND GIVEN TO PT. PT DISCHARGED ON HOME O2, ESCORTED OUT VIA WHEELCHAIR.
== END 2020-09-11 13:12 | disposition home health service (06) | DRG 378 ==
LOC: ER 19:48 → PCU 22:49 → ENPENDDIS 09-11 10:31 → PCU 09-11 13:12
PROVIDERS: Emergency Medicine; Internal Medicine; Internal Medicine Gastroenterology; ADMIT Family Medicine
PROC: 0DB68ZX Excision of Stomach, Via Natural or Artificial Opening Endoscopic, Diagnostic (ICD-10-PCS; 2020-09-07)
PROC: 30233N1 Transfusion of Nonautologous Red Blood Cells into Peripheral Vein, Percutaneous Approach (ICD-10-PCS; principal; 2020-09-07 17:30)
DX: K25.4 Chronic or unspecified gastric ulcer with hemorrhage (principal); Z68.41 Body mass index [BMI] 40.0-44.9, adult; N39.0 Urinary tract infection, site not specified; I42.1 Obstructive hypertrophic cardiomyopathy; K26.4 Chronic or unspecified duodenal ulcer with hemorrhage; E11.9 Type 2 diabetes mellitus without complications; E05.90 Thyrotoxicosis, unspecified without thyrotoxic crisis or storm; E66.9 Obesity, unspecified; Z90.13 Acquired absence of bilateral breasts and nipples; E78.5 Hyperlipidemia, unspecified; G47.00 Insomnia, unspecified; D69.6 Thrombocytopenia, unspecified; C50.919 Malignant neoplasm of unspecified site of unspecified female breast; J44.9 Chronic obstructive pulmonary disease, unspecified; K74.60 Unspecified cirrhosis of liver; Z87.891 Personal history of nicotine dependence; Z99.81 Dependence on supplemental oxygen; D50.9 Iron deficiency anemia, unspecified; B96.20 Unspecified Escherichia coli [E. coli] as the cause of diseases classified elsewhere; Z20.828 Contact with and (suspected) exposure to other viral communicable diseases
CPT/HCPCS: 0241U; 36415; 36430; 70450; 71045; 71260; 74177; 80048; 80053; 80069; 81001; 82728; 82947; 83540; 83550; 83735; 84146; 84439; 84443; 84481; 84484; 85014; 85018; 85025; 86850; 86900; 86901; 86923; 87077; 87086; 87186; 88305; 88341; 88342; 93005; 93010; 94640; 94660; 94760; 94762; 96365; 96375; 96376; 97110; 97162; 99285-25; A9270-GY; C1751; C9113; G0378; J0696; J2060; J2704; J2916; J3480; J7030; J7120; P9016; Q9967; U0003

== ENCOUNTER 2020-11-29 12:55 | Day surgery (SDC) | payer MEDICARE, OTHER ==
[~2020-11-29] VITALS: Ht 157.5 cm; Wt 103.2 kg
[~2020-11-29 12:55] MED LIST changes: +ALBU2.5V5 INH; +ANORO ELLIPTA1 EACH INH; +ASPIR 8181 M1 PO; +Aspirin EC81 MG PO; +BISA5EC PO; +FERSU300 PO; +FLUT.05NI; +HUMALOG KW100 UNIT/1 SC; +HUMALOG100 UNIT/1 SC; +METO10 PO; +METO25 PO; +NYSTOP15 GM; +OLAN10 PO; +Ondansetron Odt8 MG SL; +PROAIR RESPICL90 MCG INH; +TRESIBA FL100 UNIT/2 SC; +TRULICITY1.5 MG/0.1 SC
[2020-11-29] MEDS ORDERED: ANASTROZOLE1 M2 PO (13:31)
[2020-11-29] MEDS ORDERED: PANT40 PO (13:31)
== END 2020-11-29 14:35 | disposition home or self-care (01) ==
LOC: ORSCSDS 12:55
PROVIDERS: Internal Medicine Gastroenterology
PROC: 0DB68ZX Excision of Stomach, Via Natural or Artificial Opening Endoscopic, Diagnostic (ICD-10-PCS; principal; 2020-11-29 14:00)
DX: K26.9 Duodenal ulcer, unspecified as acute or chronic, without hemorrhage or perforation (principal); D64.9 Anemia, unspecified; K76.6 Portal hypertension; K74.60 Unspecified cirrhosis of liver; G47.30 Sleep apnea, unspecified; K31.89 Other diseases of stomach and duodenum; J44.9 Chronic obstructive pulmonary disease, unspecified; E11.9 Type 2 diabetes mellitus without complications; E66.01 Morbid (severe) obesity due to excess calories; Z68.41 Body mass index [BMI] 40.0-44.9, adult; Z99.81 Dependence on supplemental oxygen; Z79.899 Other long term (current) drug therapy; Z79.82 Long term (current) use of aspirin; Z79.84 Long term (current) use of oral hypoglycemic drugs; I10 Essential (primary) hypertension
CPT/HCPCS: 82947; 88305; 88342; J1642; J2704; J7120

== ENCOUNTER 2021-02-09 21:12 | Emergency (ER) | payer MEDICARE, OTHER ==
[~2021-02-09] VITALS: Ht 157.5 cm; Wt 116.1 kg
[~2021-02-09 21:12] MED LIST changes: +ANASTROZOLE1 M2 PO
[2021-02-09 21:49] LABS: BASOPHILS ABSOLUTE AUTO 0.04 K/mm3 (0.00-0.23); BASOPHILS PERCENT AUTO 1 % (0-2); EOSINOPHILS ABSOLUTE AUTO 0.14 K/mm3 (0.00-0.68); EOSINOPHILS PERCENT AUTO 2 % (0-6); Hematocrit 38.4 % (33.0-51.0); Hemoglobin 11.6 g/dL (11.5-16.0); IMMATURE GRAN ABSOLUTE AUTO 0.03 K/mm3 (0.00-0.10); IMMATURE GRAN PERCENT AUTO 0 % (0-1); LYMPHOCYTES ABSOLUTE AUTO 1.89 K/mm3 (0.84-5.20); LYMPHOCYTES PERCENT AUTO 22 % (21-46); MONOCYTES ABSOLUTE AUTO 0.75 K/mm3 (0.16-1.47); MONOCYTES PERCENT AUTO 9 % (4-13); Mean Corpuscular HGB 23.3 pg (26.0-34.0); Mean Corpuscular HGB Conc 30.2 g/dL (31.5-36.5); Mean Corpuscular Volume 77 fL (80-100); Mean Platelet Volume 10.3 fL (9.1-12.4); NEUTROPHILS ABSOLUTE AUTO 5.85 K/mm3 (1.96-9.15); NEUTROPHILS PERCENT AUTO 67 % (41-73); Platelet Count 183 K/mm3 (150-400); RDW Coefficient Variation 17.3 % (11.7-14.2); RDW Standard Deviation 47.8 fL (35.1-46.3); Red Blood Cell Count 4.98 M/mm3 (3.80-5.20)
[2021-02-09 22:04] LABS: Alanine Aminotransfer (ALT/SGP 20 U/L (12-78); Albumin, Blood 2.6 g/dL (3.4-5.0); Albumin/Globulin Ratio 0.6 (0.8-1.8); Alk Phos 143 U/L (50-136); Anion Gap 4 mmol/L (6-16); Aspartate Aminotrans (AST/SGOT 26 U/L (12-37); Bilirubin, Total 0.2 mg/dL (0.1-1.0); Blood Urea Nitrogen 7 mg/dL (8-24); Bun/Creatinine Ratio 11.3 (12.0-20.0); CO2, Blood 32 mmol/L (21-32); Calcium, Blood 9.2 mg/dL (8.5-10.1); Chloride, Blood 101 mmol/L (98-108); Creatinine, Blood 0.62 mg/dL (0.40-1.00); Globulin, Blood 4.4 g/dL (2.2-4.0); Glomerular Filtration Rate >60 (60-); Glucose, Blood 275 mg/dL (70-99); Sodium, Blood 137 mmol/L (136-145); Troponin I <0.015 ng/mL (0.000-0.040)
[2021-02-09 23:36] LABS: Source, Urine Clean Catch
[2021-02-09 23:41] LABS: Bilirubin, Urine Neg (Neg); Blood, Urine 3+ (Neg); Glucose Qualitative, Urine Neg (Neg); Ketones, Urine Neg (Neg); Leukocyte Esterase, Urine 3+ (Neg); Nitrite, Urine Neg (Neg); Protein, Urine 4+ (Neg); Specific Gravity, Urine 1.025 (1.003-1.022); Urobilinogen, Urine NORM (Normal)
[2021-02-09 23:51] LABS: Appearance, Urine Cloudy (Clear); Color, Urine Yellow (P-Yellow); White Blood Cells, Urine TNTC /hpf (0-5)
[2021-02-09 23:52] LABS: Bacteria Many /hpf; Squamous Epithelial Cells Few /hpf (Few)
[2021-02-10] MEDS ORDERED: CEFD300 PO (01:26)
[2021-02-10] MEDS ORDERED: Protonix40 MG PO (01:28)
== END 2021-02-10 01:50 | disposition home or self-care (01) ==
LOC: ER 21:12
PROVIDERS: Emergency Medicine
DX: E87.70 Fluid overload, unspecified (principal); K29.70 Gastritis, unspecified, without bleeding; N39.0 Urinary tract infection, site not specified; R91.1 Solitary pulmonary nodule; E11.9 Type 2 diabetes mellitus without complications; E78.5 Hyperlipidemia, unspecified; Z88.2 Allergy status to sulfonamides; Z88.5 Allergy status to narcotic agent; Z88.8 Allergy status to other drugs, medicaments and biological substances; Z79.899 Other long term (current) drug therapy
CPT/HCPCS: 71045; 71260; 74177; 80053; 81001; 83880; 84484; 85025; 86140; 87086; 87147; 93005; 93010; 96365; 96375; 99285-25; J0696; J1940; Q9967

== ENCOUNTER 2021-11-21 11:51 | Day surgery (SDC) | payer MEDICARE, OTHER ==
[~2021-11-21] VITALS: Ht 157.5 cm; Wt 113.8 kg
[~2021-11-21 11:51] MED LIST changes: +CEFD300 PO; +Protonix40 MG PO
== END 2021-11-21 14:20 | disposition home or self-care (01) ==
LOC: ORSCSDS 11:51
PROVIDERS: Internal Medicine Gastroenterology
PROC: 0DB58ZX Excision of Esophagus, Via Natural or Artificial Opening Endoscopic, Diagnostic (ICD-10-PCS; principal; 2021-11-21 13:00)
PROC: 0D757ZZ Dilation of Esophagus, Via Natural or Artificial Opening (ICD-10-PCS; principal; 2021-11-21 13:00)
PROC: 0DB78ZX Excision of Stomach, Pylorus, Via Natural or Artificial Opening Endoscopic, Diagnostic (ICD-10-PCS; principal; 2021-11-21 13:00)
DX: K21.9 Gastro-esophageal reflux disease without esophagitis (principal); R13.14 Dysphagia, pharyngoesophageal phase; K74.60 Unspecified cirrhosis of liver; K76.6 Portal hypertension; K31.89 Other diseases of stomach and duodenum; K44.9 Diaphragmatic hernia without obstruction or gangrene; I10 Essential (primary) hypertension; J44.9 Chronic obstructive pulmonary disease, unspecified; G47.33 Obstructive sleep apnea (adult) (pediatric); E11.9 Type 2 diabetes mellitus without complications; E66.01 Morbid (severe) obesity due to excess calories; Z68.42 Body mass index [BMI] 45.0-49.9, adult; Z79.899 Other long term (current) drug therapy
CPT/HCPCS: 82947; 88305; J2704; J7120

== ENCOUNTER 2022-06-13 07:54 | Day surgery (SDC) | payer MEDICARE, OTHER ==
[~2022-06-13] VITALS: Ht 157.5 cm; Wt 114.9 kg
== END 2022-06-13 09:52 | disposition home or self-care (01) ==
LOC: ORSCSDS 07:54
PROVIDERS: Ophthalmology
PROC: 08RJ3JZ Replacement of Right Lens with Synthetic Substitute, Percutaneous Approach (ICD-10-PCS; principal; 2022-06-13 09:00)
DX: H25.13 Age-related nuclear cataract, bilateral (principal); J44.9 Chronic obstructive pulmonary disease, unspecified; E11.9 Type 2 diabetes mellitus without complications; K74.60 Unspecified cirrhosis of liver; G47.33 Obstructive sleep apnea (adult) (pediatric); Z99.81 Dependence on supplemental oxygen; E66.01 Morbid (severe) obesity due to excess calories; Z68.42 Body mass index [BMI] 45.0-49.9, adult; Z79.4 Long term (current) use of insulin; Z79.899 Other long term (current) drug therapy
CPT/HCPCS: 82947; J2001; J2250; J3010; J3301; J7040; V2632

== ENCOUNTER 2022-06-27 07:57 | Day surgery (SDC) | payer MEDICARE, OTHER ==
[~2022-06-27] VITALS: Ht 157.5 cm; Wt 116.2 kg
== END 2022-06-27 09:50 | disposition home or self-care (01) ==
LOC: ORSCSDS 07:57
PROVIDERS: Ophthalmology
PROC: 08DK3ZZ Extraction of Left Lens, Percutaneous Approach (ICD-10-PCS; principal; 2022-06-27 09:00)
DX: H25.12 Age-related nuclear cataract, left eye (principal); Z96.1 Presence of intraocular lens; J44.9 Chronic obstructive pulmonary disease, unspecified; K21.9 Gastro-esophageal reflux disease without esophagitis; E11.9 Type 2 diabetes mellitus without complications; K74.60 Unspecified cirrhosis of liver; I10 Essential (primary) hypertension; F32.A Depression, unspecified; G47.30 Sleep apnea, unspecified; F41.8 Other specified anxiety disorders; E66.9 Obesity, unspecified; Z68.42 Body mass index [BMI] 45.0-49.9, adult; Z87.891 Personal history of nicotine dependence; Z79.84 Long term (current) use of oral hypoglycemic drugs; Z79.82 Long term (current) use of aspirin; Z79.899 Other long term (current) drug therapy
CPT/HCPCS: 82947; J2001; J2250; J3010; J3301; J7040; V2632

== ENCOUNTER 2024-06-19 15:28 | Emergency (ER) | payer MEDICARE, OTHER ==
[~2024-06-19] VITALS: Ht 154.9 cm; Wt 113.4 kg
[~2024-06-19 15:28] MED LIST changes: +ANASTROZOLE1 M7 PO; +AZIT250 PO; +BASAGLAR K100 UNIT/6 SC; +HUMALOG KW100 UNIT/1 SQ; +METHI10 PO; +REMERON1510 PO
[2024-06-19 16:07] LABS: BASOPHILS ABSOLUTE AUTO 0.06 K/mm3 (0.00-0.23); BASOPHILS PERCENT AUTO 1 % (0-2); EOSINOPHILS PERCENT AUTO 3 % (0-6); Hematocrit 39.4 % (33.0-51.0); IMMATURE GRAN ABSOLUTE AUTO 0.03 K/mm3 (0.00-0.10); IMMATURE GRAN PERCENT AUTO 0 % (0-1); LYMPHOCYTES ABSOLUTE AUTO 1.71 K/mm3 (0.84-5.20); LYMPHOCYTES PERCENT AUTO 24 % (21-46); MONOCYTES ABSOLUTE AUTO 0.63 K/mm3 (0.16-1.47); MONOCYTES PERCENT AUTO 9 % (4-13); Mean Corpuscular HGB 25.2 pg (26.0-34.0); Mean Corpuscular HGB Conc 30.5 g/dL (31.5-36.5); Mean Corpuscular Volume 83 fL (80-100); Mean Platelet Volume 9.4 fL (9.1-12.4); NEUTROPHILS ABSOLUTE AUTO 4.44 K/mm3 (1.96-9.15); NEUTROPHILS PERCENT AUTO 63 % (41-73); Platelet Count 178 K/mm3 (150-400); RDW Coefficient Variation 17.4 % (11.7-14.2); Red Blood Cell Count 4.76 M/mm3 (3.80-5.20); White Blood Cell Count 7.07 K/mm3 (4.00-11.30)
[2024-06-19 16:21] LABS: Albumin, Blood 2.5 g/dL (3.4-5.0); Albumin/Globulin Ratio 0.6 (0.8-1.8); Bilirubin, Total 0.3 mg/dL (0.1-1.0); Bun/Creatinine Ratio 19.2 (12.0-20.0); Calcium, Blood 9.4 mg/dL (8.5-10.1); Creatinine, Blood 0.52 mg/dL (0.40-1.00); Globulin, Blood 4.3 g/dL (2.2-4.0); Total Protein, Blood 6.8 g/dL (6.4-8.2)
[2024-06-19 18:54] LABS: Influenza A, PCR NEGATIVE (NEGATIVE); Influenza B, PCR NEGATIVE (NEGATIVE); Resp Syncytial Virus, PCR NEGATIVE (NEGATIVE); SARS-Cov-2 (COVID-19) PCR, MMC NEGATIVE (NEGATIVE)
[2024-06-19 20:58] LABS: Source, Urine Clean Catch
[2024-06-19 21:02] LABS: Appearance, Urine Cloudy (Clear); Bilirubin, Urine Neg (Neg); Blood, Urine 1+ (Neg); Glucose Qualitative, Urine Neg (Neg); Ketones, Urine Neg (Neg); Leukocyte Esterase, Urine 3+ (Neg); Nitrite, Urine Neg (Neg); Protein, Urine 3+ (Neg); Urobilinogen, Urine NORM (Normal)
[2024-06-19 21:04] LABS: Color, Urine Pale Yellow (P-Yellow)
[2024-06-19] MEDS ORDERED: NS 1,000 ML IV SCH (21:05)
[2024-06-19 21:08] LABS: White Blood Cells, Urine TNTC /hpf (0-5)
[2024-06-19 21:09] LABS: Bacteria Many /hpf; Red Blood Cells, Urine 0-2 /hpf (0-2); Squamous Epithelial Cells Few /hpf (Few)
[2024-06-19] MEDS ORDERED: Nitrofurantoin/Nitrofuran Mac 100 MG Cap PO ONE (21:35)
[2024-06-19] MEDS ORDERED: Azithromycin 250 MG Tab PO ONE (21:35)
[2024-06-19] MEDS ORDERED: AZIT250 PO (21:36)
[2024-06-19] MEDS ORDERED: NITR100CA PO (21:36)
[2024-06-19 22:00] VITALS: BP 131/82
== END 2024-06-19 22:30 | disposition home or self-care (01) ==
LOC: ER 15:28
PROVIDERS: Student in an Organized Health Care Education/Training Program
DX: J44.0 Chronic obstructive pulmonary disease with (acute) lower respiratory infection (principal); J20.9 Acute bronchitis, unspecified; N39.0 Urinary tract infection, site not specified; R91.1 Solitary pulmonary nodule; Z85.3 Personal history of malignant neoplasm of breast; Z88.8 Allergy status to other drugs, medicaments and biological substances; Z88.5 Allergy status to narcotic agent; Z88.1 Allergy status to other antibiotic agents; Z79.899 Other long term (current) drug therapy; Z79.84 Long term (current) use of oral hypoglycemic drugs; Z79.4 Long term (current) use of insulin; Z87.891 Personal history of nicotine dependence; E11.9 Type 2 diabetes mellitus without complications; K21.9 Gastro-esophageal reflux disease without esophagitis; E78.5 Hyperlipidemia, unspecified; G47.33 Obstructive sleep apnea (adult) (pediatric)
CPT/HCPCS: 0241U; 71046; 71260; 80053; 81001; 83880; 84484; 85025; 87077; 87086; 87186; 93005; 93010; 96360-59; 99285-25; A9270; J7030; Q9967

== ENCOUNTER → 2025-05-23 | Outpatient (CLI) | payer MEDICARE, OTHER ==
[~2025-05-23] MED LIST changes: +AMOCLA875 PO
[2025-05-23 11:18] LABS: Hematocrit 35.3 % (33.0-51.0); Hemoglobin 10.2 g/dL (11.5-16.0); Mean Corpuscular HGB Conc 28.9 g/dL (31.5-36.5); Mean Corpuscular Volume 75 fL (80-100); NRBC ABSOLUTE 0.00 K/mm3 (0.00-0.02); NRBC Auto 0.0 /100 WBC (0.0-0.2); Platelet Count 123 K/mm3 (150-400); RDW Coefficient Variation 23.6 % (11.7-14.2); RDW Standard Deviation 63.0 fL (35.1-46.3)
== END | disposition home or self-care (01) ==
LOC: LAB 10:30 → LAB SHORT 10:30
PROVIDERS: Internal Medicine Hematology & Oncology
DX: C50.919 Malignant neoplasm of unspecified site of unspecified female breast (principal)
CPT/HCPCS: 85027